=== PATIENT | male | born 1975 | race Caucasian/White ===

== ENCOUNTER 2022-05-02 12:39 | Emergency (ER) | payer BC, OTHER ==
[2022-05-02 13:01] VITALS: BP 126/74; PULSE 83; RESP 18; TEMP 98; BMI 31.4
[2022-05-02] MEDS ORDERED: LIDOCAINE HCL 2% (20ML MULTI-DOSE VIAL) ONE (15:16)
== END 2022-05-02 16:25 | disposition home or self-care (01) ==
LOC: FER 12:39
PROC: 0H96XZZ Drainage of Back Skin, External Approach (ICD-10-PCS; principal; 2022-05-02)
DX: L02.212 Cutaneous abscess of back [any part, except buttock and flank] (principal)
CPT/HCPCS: 99283-25